=== PATIENT | female | born 1960 | race Caucasian/White ===

== ENCOUNTER 2017-01-14 18:37 | Inpatient (IN) | payer BC ==
[~2017-01-14] VITALS: Ht 167.6 cm; Wt 84.0 kg
[~2017-01-14 18:37] MED LIST: AUGMENTIN875 MG PO; EFFEXOR75 MG PO; PLAQUENIL200 MG PO
[2017-01-14 19:42] LABS: HEMATOCRIT 42.4 % (36.0-46.0); MCH 26.8 PG (29.0-34.0); MCHC 32.1 G/DL (30.0-36.0); MCV 83.5 FL (83-99); MEAN PLAT.VOLUME 9.9 uM^3 (9.5-12.4); PLATELET COUNT 241 K/uL (156-360); RBC DIS.WIDTH-CV 13.1 % (11.8-14.6); RBC DIS.WIDTH-SD 39.4 % (39-53); RED BLOOD COUNT 5.08 M/uL (3.80-5.20); WHITE BLOOD COUNT 6.2 K/uL (4.1-10.2)
[2017-01-14 19:54] LABS: CHLORIDE 106 mEq/L (99-109); POTASSIUM 4.6 mEq/L (3.7-5.4); SODIUM 142 mEq/L (136-147)
[2017-01-14 19:56] LABS: GLUCOSE 106 mg/dL (70-99)
[2017-01-14 19:57] LABS: ANION GAP 7 MEQ/L (2-14)
[2017-01-14 19:58] LABS: TOTAL BILIRUBIN 2.1 mg/dL (0.0-1.0)
[2017-01-14 19:59] LABS: ALKALINE PHOSPHATASE 321 IU/L (3-129)
[2017-01-14 20:00] LABS: GFR ESTIMATE (CALCULATED) > 59 mL/min/
[2017-01-14 20:01] LABS: UREA NITROGEN (BUN) 10 mg/dL (9-23)
[2017-01-14 21:11] LABS: LIPASE 31 U/L (1.0-51.0)
[2017-01-14 21:22] LABS: ADD MIUA? YES; BILIRUBIN NEGATIVE; BLOOD NEGATIVE; COLOR YELLOW ((YELLOW)); GLUCOSE (STRIP) NEGATIVE; KETONES NEGATIVE; LEUKOCYTES NEGATIVE; NITRITE NEGATIVE; PROTEIN (STRIP) NEGATIVE; SPECIFIC GRAVITY 1.013 (1.000-1.030)
[2017-01-14 21:26] LABS: BACTERIA RARE /HPF; EPITHELIAL CELLS RARE /HPF; MUCUS TRACE /LPF; RED BLOOD CELLS 0-5 /HPF (0-5); UCUL ADDED? NO; WHITE BLOOD CELLS 0-5 /HPF (0-5)
[2017-01-14] MEDS ORDERED: EC-NAPROSYN375 MG PO (23:31)
[2017-01-15] MEDS ORDERED: OMEPRAZOLE40 M1 PO (00:34)
[2017-01-15 04:36] VITALS: BP 133/82
[2017-01-15 06:25] LABS: EOSINOPHIL (%) 0.2 % (0-5); HEMATOCRIT 40.4 % (36.0-46.0); IMMATURE GRANULOCYTE (%) 0.2 % (0.0-0.7); MCH 27.4 PG (29.0-34.0); MCHC 32.2 G/DL (30.0-36.0); MCV 85.1 FL (83-99); MEAN PLAT.VOLUME 10.7 uM^3 (9.5-12.4); MONOCYTE (%) 10.2 % (3-12); MONOCYTE COUNT 0.6 K/uL (0-0.8); NEUTROPHIL (%) 71.2 % (45-76); NEUTROPHIL COUNT 3.9 K/uL (1.8-6.4); PLATELET COUNT 210 K/uL (156-360); RBC DIS.WIDTH-CV 13.4 % (11.8-14.6); RED BLOOD COUNT 4.75 M/uL (3.80-5.20); WHITE BLOOD COUNT 5.4 K/uL (4.1-10.2)
[2017-01-15 06:59] LABS: ALKALINE PHOSPHATASE 305 IU/L (3-129); ANION GAP 7 MEQ/L (2-14); CHLORIDE 106 MEQ/L (99-109); GFR ESTIMATE (CALCULATED) > 59 mL/min/; GLUCOSE 90 mg/dL (70-99); POTASSIUM 4.3 MEQ/L (3.7-5.4); SAMPLE HEMOLYSIS CHECK 0; SAMPLE ICTERIC CHECK 1; SAMPLE LIPEMIA CHECK 0; SODIUM 141 MEQ/L (136-147); TOTAL BILIRUBIN 3.5 MG/DL (0.0-1.0); UREA NITROGEN (BUN) 8 mg/dL (9-23)
[2017-01-15 07:47] VITALS: BP 132/87
[2017-01-15 11:33] VITALS: BP 127/70
[2017-01-15 14:57] VITALS: BP 133/81
[2017-01-16] VITALS: BP 107/61
[2017-01-16 07:17] LABS: EOSINOPHIL (%) 0.2 % (0-5); HEMATOCRIT 38.3 % (36.0-46.0); IMMATURE GRANULOCYTE (%) 0.2 % (0.0-0.7); MCH 27.3 PG (29.0-34.0); MCHC 32.4 G/DL (30.0-36.0); MCV 84.4 FL (83-99); MEAN PLAT.VOLUME 10.5 uM^3 (9.5-12.4); MONOCYTE (%) 8.2 % (3-12); MONOCYTE COUNT 0.4 K/uL (0-0.8); NEUTROPHIL (%) 70.8 % (45-76); NEUTROPHIL COUNT 3.6 K/uL (1.8-6.4); PLATELET COUNT 204 K/uL (156-360); RBC DIS.WIDTH-CV 13.4 % (11.8-14.6); RBC DIS.WIDTH-SD 40.7 % (39-53); RED BLOOD COUNT 4.54 M/uL (3.80-5.20); WHITE BLOOD COUNT 5.1 K/uL (4.1-10.2)
[2017-01-16 07:28] VITALS: BP 146/82
[2017-01-16 07:47] LABS: ALKALINE PHOSPHATASE 380 IU/L (3-129); ANION GAP 8 MEQ/L (2-14); CHLORIDE 106 MEQ/L (99-109); GFR ESTIMATE (CALCULATED) > 59 mL/min/; GLUCOSE 90 mg/dL (70-99); POTASSIUM 3.7 MEQ/L (3.7-5.4); SAMPLE HEMOLYSIS CHECK 0; SAMPLE ICTERIC CHECK 0; SAMPLE LIPEMIA CHECK 0; SODIUM 141 MEQ/L (136-147); TOTAL BILIRUBIN 3.1 MG/DL (0.0-1.0); UREA NITROGEN (BUN) 6 mg/dL (9-23)
[2017-01-16 08:07] LABS: IMMUNOGLOBULIN A 227 MG/DL (40-350); IMMUNOGLOBULIN G 855 MG/DL (650-1600); IMMUNOGLOBULIN M 83 MG/DL (50-300)
[2017-01-16 08:07] LABS: IRON 81 MCG/DL (35-150)
[2017-01-16 08:10] LABS: SALICYLATE < 3.0 MG/DL (15-30)
[2017-01-16 10:09] LABS: HBSG INDEX 0.19
[2017-01-16 10:10] LABS: HPCA INDEX 0.17
[2017-01-16 10:11] LABS: ANTI-HEPATITIS A VIRUS (IGM) Nonreactive; HAV INDEX 0.09
[2017-01-16 10:12] LABS: ANTI-HEPATITIS B CORE (IGM) Nonreactive; HBC IgM INDEX 0.05
[2017-01-16 14:56] VITALS: BP 120/77
[2017-01-17 00:02] VITALS: BP 123/76
[2017-01-17 06:58] LABS: MCH 26.8 PG (29.0-34.0); MCHC 31.3 G/DL (30.0-36.0); MCV 85.8 FL (83-99); MEAN PLAT.VOLUME 10.2 uM^3 (9.5-12.4); PLATELET COUNT 208 K/uL (156-360); RBC DIS.WIDTH-CV 13.2 % (11.8-14.6); RED BLOOD COUNT 4.66 M/uL (3.80-5.20); WHITE BLOOD COUNT 4.2 K/uL (4.1-10.2)
[2017-01-17 07:34] VITALS: BP 132/70
[2017-01-17 08:13] LABS: ALKALINE PHOSPHATASE 325 IU/L (3-129); ANION GAP 6 MEQ/L (2-14); CHLORIDE 106 MEQ/L (99-109); GFR ESTIMATE (CALCULATED) > 59 mL/min/; GLUCOSE 95 mg/dL (70-99); POTASSIUM 3.6 MEQ/L (3.7-5.4); SAMPLE HEMOLYSIS CHECK 0; SAMPLE ICTERIC CHECK 0; SAMPLE LIPEMIA CHECK 0; SODIUM 140 MEQ/L (136-147); UREA NITROGEN (BUN) 6 mg/dL (9-23)
[2017-01-17 08:30] LABS: TOTAL BILIRUBIN 0.9 MG/DL (0.0-1.0)
[2017-01-17 10:10] LABS: ANTI-EPSTEIN-BARR NUCLEAR AG NEGATIVE; ANTI-EPSTEIN-BARR VCA IGG POSITIVE; ANTI-EPSTEIN-BARR VCA IGM NEGATIVE
[2017-01-17 13:01] LABS: ALPHA-1-ANTITRYPSIN+ 95 mg/dL (83-199)
[2017-01-17 15:50] VITALS: BP 124/74
[2017-01-17 23:35] LABS: ANTI-SMOOTH MUSCLE (Actin)+ <20 U (<20)
[2017-01-17 23:52] VITALS: BP 127/72
[2017-01-17 23:56] LABS: MITOCHONDRIAL (M2) ANTIBODIES+ <=20.0 U (<=20.0)
[2017-01-18 06:53] LABS: ALKALINE PHOSPHATASE 308 IU/L (3-129); DIRECT BILIRUBIN 0.3 mg/dL (0.0-0.3); TOTAL BILIRUBIN 0.8 MG/DL (0.0-1.0)
[2017-01-18 07:23] VITALS: BP 132/78
[2017-01-18] MEDS ORDERED: ZOFRAN4 MG PO (11:15)
[2017-01-18] MEDS ORDERED: BENADRYL25 MG PO (11:15)
[2017-01-18 16:02] LABS: Cytomegalovirus IgM Antibody+ 0.2 (())
== END 2017-01-18 12:25 | disposition home or self-care (01) | DRG 392 ==
LOC: EME 18:37 → EDOF 01-15 03:16 → 5WEST 01-15 03:16 → 5SOUTH 01-15 12:25 → 5WEST 01-15 12:25 → 5SOUTH 01-15 14:30
PROVIDERS: Hospitalist; Internal Medicine Gastroenterology; Nurse Practitioner Adult Health; Physician Assistant Medical; Student in an Organized Health Care Education/Training Program
DX: R10.13 Epigastric pain (principal); R03.0 Elevated blood-pressure reading, without diagnosis of hypertension; K21.9 Gastro-esophageal reflux disease without esophagitis; M35.9 Systemic involvement of connective tissue, unspecified; R79.89 Other specified abnormal findings of blood chemistry; F32.9 Major depressive disorder, single episode, unspecified; K80.50 Calculus of bile duct without cholangitis or cholecystitis without obstruction; R21 Rash and other nonspecific skin eruption; E87.6 Hypokalemia
CPT/HCPCS: 74177; 74181; 80053; 80074; 80076; 81003; 82103 90; 82390; 82784 90; 83516 90; 83540; 83690; 84466; 85025; 85027; 86038; 86256 90; 86645 90; 86664; 86665; 93005; 99281; 99285; G0480; J1170; J1644; J1885; J2405; J3010; J7030